=== PATIENT | male | born 1975 | race Caucasian/White ===

== ENCOUNTER 2023-11-10 08:48 | Emergency (ER) | payer OTHER ==
[2023-11-10 08:56] VITALS: BMI 29.5
[2023-11-10] MEDS ORDERED: SODIUM CHLORIDE 1,000 ML IV STA (11:32)
[2023-11-10] MEDS ORDERED: ACETAMINOPHEN 1000 MG/100 ML BAG IVPB ONE (11:33)
[2023-11-10 12:33] LABS: HEMATOCRIT 44.3 % (35.4-49); HEMOGLOBIN 14.1 GM/dL (11.7-16.9); MCH 24.6 pg (25.7-33.7); MCHC 31.7 g/dl (32.0-35.9); MEAN CELL VOLUME 77.4 fl (80-96); MEAN PLT VOLUME 7.9 fl (7.5-11.1); PLATELET COUNT 239 10^3/uL (134-434); RBC 5.73 M/mm3 (4.00-5.60); RDW 16.6 % (11.9-15.9); URINE APPEARANCE CLEAR; URINE BILIRUBIN NEGATIVE (NEGATIVE); URINE COLOR YELLOW; URINE GLUCOSE (UA) NEGATIVE (NEGATIVE); URINE KETONE NEGATIVE (NEGATIVE); URINE LEUK ESTERASE NEGATIVE (NEGATIVE); URINE NITRITE NEGATIVE (NEGATIVE); URINE PROTEIN NEGATIVE (NEGATIVE); URINE UROBILINOGEN 0.2 mg/dL (0.2-1.0); WHITE BLOOD COUNT 5.4 K/mm3 (4.0-10.0)
[2023-11-10 12:48] LABS: POTASSIUM 4.3 mmol/L (3.5-5.1)
[2023-11-10 12:49] LABS: CALCIUM 9.5 mg/dL (8.5-10.1)
[2023-11-10 12:50] LABS: ALBUMIN 3.9 g/dl (3.4-5.0); BLOOD UREA NITROGEN 10.3 mg/dL (7-18); MAGNESIUM 2.2 mg/dL (1.8-2.4)
[2023-11-10 12:53] LABS: CREATININE 1.1 mg/dL (0.55-1.3)
[2023-11-10 12:55] LABS: BILIRUBIN,TOTAL 0.4 mg/dL (0.2-1); TOT PROT 7.5 g/dl (6.4-8.2)
[2023-11-10 14:38] LABS: HIV INTERPRETATION NEGATIVE (NEGATIVE)
[2023-11-10 16:04] VITALS: BP 133/82; PULSE 91; RESP 15; TEMP 98.8
== END 2023-11-10 14:56 | disposition home or self-care (01) ==
LOC: JER 08:48
PROC: 3E0337Z Introduction of Electrolytic and Water Balance Substance into Peripheral Vein, Percutaneous Approach (ICD-10-PCS; principal; 2023-11-10)
DX: M54.6 Pain in thoracic spine (principal); R06.02 Shortness of breath; R30.0 Dysuria; R42 Dizziness and giddiness; R07.9 Chest pain, unspecified; Z20.822 Contact with and (suspected) exposure to COVID-19
CPT/HCPCS: 0241U-QW; 36415; 71046-TC-FY; 80053; 81003; 83735; 84484; 85027; 86695; 86696; 86707; 86780; 87086; 87340; 87350; 87389; 87491; 87522; 87591; 87661; 93005; 93010; 99285-25